=== PATIENT | male | born 1990 | race Two or more races ===

== ENCOUNTER 2024-04-16 14:01 | Emergency (ER) | payer OTHER ==
[~2024-04-16] VITALS: Ht 188 cm; Wt 183.3 kg
--- NOTE | 2024-04-16 14:36 | ED.PDOC ---
SOB-HPI HPI Comments 34 year old male presents to the ED with chief complaint of SOB and calf pain. Patient reports that he has been experiencing SOB with associated pain to his left calf since earlier today. Patient relays that he has history of a PE that he developed after lyly COVID-19 about 2 years ago, so he came in today worried he may have a blood clot. Patient denies any numbness, weakness, chest pain, dizziness, headache, or cough. Chief Complaint: Shortness of Breath Time Seen by MD: 14:32 Primary Care Provider: kerry Reviewed notes: Nurses Notes, Medications, Allergies Information Source: Patient Mode of Arrival: Ambulatory Severity: Moderate Timing: Hours Duration: Since onset Context: At Rest PE Risk Factors: None History of: DVT/PE Prehospital treatment: None Modifying Factors: Nothing Associated Signs and Symptoms: Calf Pain Past Medical History PAST MEDICAL HISTORY: Denies Surgical History: Denies all surgeries Family History Family History: Reviewed,noncontributory to illness Social History Smoker: Non-Smoker Alcohol: Denies ETOH Use Drugs: Denies Drug Use Lives In: Home Constitutional: denies: chills, diaphoresis, fatigue, fever, malaise, sweats, weakness, others EENTM: denies: blurred vision, double vision, ear bleeding, ear discharge, ear drainage, ear pain, ear ringing, eye pain, eye redness, hearing loss, mouth pain, mouth swelling, nasal discharge, nose bleeding, nose congestion, nose pain, photophobia, tearing, throat pain, throat swelling, voice changes, others Respiratory: reports: shortness of breath; denies: cough, hemoptysis, orthopnea, SOB at rest, SOB with excertion, stridor, wheezing, others Cardiovascular: denies: chest pain, dizzy spells, diaphoresis, Dyspnea on exertion, edema, irregular heart beat, left arm pain, lightheadedness, palpitations, PND, syncope, others Gastrointestinal: denies: abdomen distended, abdominal pain, blood streaked bowels, constipated, diarrhea, dysphagia, difficulty swallowing, hematemesis, melena, nausea, poor appetite, poor fluid intake, rectal bleeding, rectal pain, vomiting, others Genitourinary: denies: burning, dysuria, flank pain, frequency, hematuria, incontinence, penile discharge, penile sore, pain, testicle pain, testicle swelling, urgency, others Neurological: denies: dizziness, fainting, headache, left sided numbness, left sided weakness, numbness, paresthesia, pre-existing deficit, right sided numbness, right sided weakness, seizure, speech problems, tingling, tremors, weakness, others Musculoskeletal: reports: others (Left calf pain); denies: back pain, gout, joint pain, joint swelling, muscle pain, muscle stiffness, neck pain Integumetry: denies: bruises, change in color, change in hair/nails, dryness, laceration, lesions, lumps, rash, wounds, others Allergic/Immunocompromised: denies: Difficulty Healing, Frequent Infections, Hives, Itching, others Hematologic/Lymphatic: denies: anemia, blood clots, easy bleeding, easy bruising, swollen glands, others Endocrine: denies: excessive hunger, excessive sweating, excessive thirst, excessive urination, flushing, intolerance to cold, intolerance to heat, unexplained weight gain, unexplained weight loss, others Psychiatric: denies: anxiety, bipolar disorder, depression, hopeless, panic disorder, schizophrenia, sleepless, suicidal, others All Other Systems: Reviewed and Negative Physical Exam General Appearance: Moderate Distress, Other (Increased BMI) HEENT: Normal ENT Inspection, PERRL/EOMI Neck: Full Range of Motion, Non-Tender, Normal, Normal Inspection Respiratory: Chest Non-Tender, No Accessory Muscle Use, No Respiratory Distre ss, Other (Coarse breath sounds) Cardiovascular: No Edema, No JVD, No Murmur, No Gallop, Normal Peripheral Pulses, Regular Rate/Rhythm Breast Exam: Deferred Gastrointestinal: No Organomegaly, Non Tender, No Pulsatile Mass, Normal Bowel Sounds, Soft Genitalia: Deferred Pelvic: Deferred Rectal: Deferred Extremities: No calf tenderness, Normal capillary refill, Normal inspection, Normal range of motion, Non-tender, No pedal edema Musculoskeletal : Apperance: Normal Neurologic: Alert, angle shearer II-XII nml as Tested, No Motor Deficits, Normal Affect, Normal Mood, No Sensory Deficits Cerebellar Function: Normal Reflexes: Normal Skin: Dry, Normal Color, Warm Peripheral Pulses: 3+ Radial (R), 3+ Radial (L) Lymphatic: No Adenopathy Was a procedure done? Was a procedure done?: No Differential Dx Differential Diagnosis: Anxiety, Asthma, Bronchitis, CHF, COPD X-Ray, Labs, Meds, VS Vital Signs Date Time Temp Pulse Resp B/P (MAP) Pulse Ox O2 Delivery O2 Flow Rate FiO2 04/16/24 14:17 98.8 89 22 157/96 (116) 97 Lab Test 04/16/24 15:29 Range/Units White Blood Count 7.8 4.4-10.8 10^3/uL Red Blood Count 6.06 H 4.5-5.90 10^6/uL Hemoglobin 17.8 H 13.5-17.5 g/dL Hematocrit 52.7 41.0-53.0 % Mean Corpuscular Volume 86.9 80.0-100.0 fL Mean Corpuscular Hemoglobin 29.4 28.0-32.0 pg Mean Corpuscular Hemoglobin Concent 33.8 32.0-36.0 g/dL Red Cell Distribution Width 13.2 11.8-14.3 % Platelet Count 244 140-450 10^3/uL Mean Platelet Volume 7.9 6.9-10.8 fL Neutrophils (%) (Auto) 57.7 37.0-80.0 % Lymphocytes (%) (Auto) 31.0 10.0-50.0 % Monocytes (%) (Auto) 7.3 0.0-12.0 % Eosinophils (%) (Auto) 3.5 0.0-7.0 % Basophils (%) (Auto) 0.5 0.0-2.0 % Neutrophils # (Auto) 4.5 1.6-8.6 10 ^3/uL Lymphocytes # (Auto) 2.4 0.4-5.4 10 ^3/uL Monocytes # (Auto) 0.6 0-1.3 10 ^3/uL Eosinophils # (Auto) 0.3 0-0.8 10 ^3/uL Basophils # (Auto) 0 0-0.2 10 ^3/uL Nucleated Red Blood Cells 0.1 % D-Dimer, Quantitative 1.43 H 0.0-0.49 mg/L FEU Sodium Level 137 136-145 mmol/L Potassium Level 4.0 3.5-5.1 mmol/L Chloride Level 103 98-107 mmol/L Carbon Dioxide Level 24 20-31 mmol/L Anion Gap 10 5-15 Blood Urea Nitrogen 10 9-23 mg/dL Creatinine 1.14 0.700-1.30 mg/dL Glomerular Filtration Rate Calc 87 >90 mL/min BUN/Creatinine Ratio 8.8 L 10.0-20.0 Serum Glucose 319 H 74-106 mg/dL Calcium Level 10.3 8.7-10.4 mg/dL Bilat DVT US: FINDINGS: The right and left common femoral, superficial femoral, popliteal, posterior tibial veins and trifurcation appear patent with normal augmentation, phasicity, compressibility and color-flow. IMPRESSION: 1. There is no sonographic evidence for DVT in the lower extremities. Patient alert. Complaining of shortness a breath. DVT study within normal limits. Vitals stable. Answering all questions. He has stopped taking his blood pressure medication. Blood sugar elevated. Blood pressure elevated. WBC within normal limits. D-dimer elevated. Was given Lovenox. Continues to have shortness a breath. Echocardiogram. Explained to the patient. Continue cardiac monitoring. Time of 1ST Reevaluation: 15:32 Reevaluation 1ST: Improved Patient Education/Counseling: Diagnosis, Treatment Family Education/Counseling: Diagnosis, Treatment Additional Information I reviewed the following notes from patient's past medical encounters: None The following tests were ordered, and results were reviewed by me: CBC, BMP, D- Dimer, Bilat DVT US Additional Information was gathered from interviewing the following independent historians: Spouse I reviewed and agreed with the following test results read by other providers: Bilat DVT US I discussed treatment and results with medical personnel and spouse. Departure 1 Departure Time of Disposition: 17:16 Impression: Primary Impression: Uncontrolled diabetes mellitus Qualified Codes: E13.65 - Other specified diabetes mellitus with hyperglycemia Additional Impressions: Hypertensive urgency Shortness of breath Increased BMI Elevated d-dimer Disposition: ADMITTED INPATIENT Admit to: Med Surg Condition: Guarded Critical Care Note Critical Care Time?: Yes (45 min-critical care time only) Stability Stability form required: No Heart Score Heart Score: Heart Score Response (Comments) Value History N/A 0 EKG N/A 0 Age N/A 0 Risk Factors N/A 0 Troponin N/A 0 Total 0 I personally scribed for ALLI IRVIN MD ([email or web address]) on 04/16/24 at 14:36. Electronically submitted by Bill Lou ([email or web address]). I personally scribed for ALLI IRVIN MD ([email or web address]) on 04/16/24 at 15:32. Electronically submitted by Bill Lou ([email or web address]). ALLI IRVIN MD Apr 16, 2024 14:36
--- NOTE | 2024-04-16 15:28 | DVH ---
BILATERAL LOWER EXTREMITY VENOUS DOPPLER CLINICAL HISTORY: dvt Technique: Duplex Doppler evaluation of the deep venous systems of both lower extremities from the co mmon femoral veins to the popliteal veins including color Doppler and spectral/pulsed waveform analys is was performed. COMPARISON: None FINDINGS: The right and left common femoral, superficial femoral, popliteal, posterior tibial veins and trifur cation appear patent with normal augmentation, phasicity, compressibility and color-flow. IMPRESSION: 1. There is no sonographic evidence for DVT in the lower extremities. HS:Y
[2024-04-16 16:04] LABS: Basophils # (auto) 0 10 ^3/uL (0-0.2); Basophils % (auto) 0.5 % (0.0-2.0); Eosinophils # (auto) 0.3 10 ^3/uL (0-0.8); Eosinophils % (auto) 3.5 % (0.0-7.0); Hematocrit 52.7 % (41.0-53.0); Hemoglobin 17.8 g/dL (13.5-17.5); Lymphocytes # (auto) 2.4 10 ^3/uL (0.4-5.4); Mean Corpuscular Hemoglobin 29.4 pg (28.0-32.0); Mean Corpuscular Hgb Conc. 33.8 g/dL (32.0-36.0); Mean Corpuscular Volume 86.9 fL (80.0-100.0); Monocytes # (auto) 0.6 10 ^3/uL (0-1.3); Monocytes % (auto) 7.3 % (0.0-12.0); Neutrophils # (auto) 4.5 10 ^3/uL (1.6-8.6); Neutrophils % (auto) 57.7 % (37.0-80.0); Nucleated Red Blood Cells % 0.1 %; Platelet Count (auto) 244 10^3/uL (140-450); Red Blood Cells 6.06 10^6/uL (4.5-5.90); Red Cell Distribution Width 13.2 % (11.8-14.3); White Blood Cell 7.8 10^3/uL (4.4-10.8)
[2024-04-16 16:13] LABS: Anion Gap 10 (5-15); Carbon Dioxide 24 mmol/L (20-31); Chloride 103 mmol/L (98-107); Sodium 137 mmol/L (136-145)
[2024-04-16 16:14] LABS: Calcium 10.3 mg/dL (8.7-10.4)
[2024-04-16 16:19] LABS: BUN/Creatinine Ratio 8.8 (10.0-20.0); Blood Urea Nitrogen 10 mg/dL (9-23); Glucose 319 mg/dL (74-106)
[2024-04-16 17:57] VITALS: PULSE 86; RESP 16; O2SAT 96
[2024-04-16] MEDS: ENOXAPARIN SOD 150 MG/1 ML SYRINGE SC ONE (18:00)
[2024-04-16] MEDS: IOHEXOL 350 MG/ML 100ML IJ ONE (18:15)
--- NOTE | 2024-04-16 18:52 | DVH ---
CLINICAL HISTORY: pe TECHNIQUE: CT angiogram of the chest was performed with intravenous contrast. 3D MIP reconstructed i mages were created and archived on the PACS system. This exam was performed according to our [facility] dose optimization program. Up-to-date CT equipment and radiation dose reduction techniques are u tilized as appropriate. [Radimetrics Exposure Report] CTDI: [CTDIvol] DLP: 919.54 WID: COMPARISON: None FINDINGS: Lower Neck: Unremarkable Axilla, Mediastinum and Jumana: Normal-sized heart without pericardial effusion. The thoracic aorta is patent and normal caliber. There is no central, segmental, or definite subsegmental pulmonary artery filling defect. Limited evaluation of subsegmental pulmonary arteries due to respiratory motion. Heart and Great Vessels: Unremarkable. Airway, Lungs and Pleura: Trachea and central airways are patent. No airspace consolidation, pleural effusion, or pneumothorax. Chest Wall and Osseous Structures: No destructive osseous lesion. Thoracic spondylosis. Upper abdomen: Diffuse moderate hepatic steatosis. IMPRESSION: 1. Limited evaluation of subsegmental pulmonary arteries due to respiratory motion. No central or def inite segmental pulmonary embolism. 2. No pneumonia or acute abnormality in the chest. 3. Moderate diffuse hepatic steatosis.
[2024-04-16] MEDS ORDERED: LOSA-533 PO (20:30)
[2024-04-16 20:33] VITALS: BP 164/101; PULSE 87; RESP 18; TEMP 99.1; O2SAT 98
[2024-04-16] MEDS ORDERED: LOSARTAN POTASSIUM 25 MG TAB PO ONE (20:45)
[2024-04-16] MEDS ORDERED: DEXTROSE (50%) 50ML SYRG IV PRN (21:15)
--- NOTE | 2024-04-16 22:12 | DVHHPRES ---
History of Present Illness Resident Creating Document: PASCALE JOHNSON RESIDENT History of Present Illness Patient is a 34-year-old male with past medical history of hypertension, prediabetes, DVT, pulmonary embolism, who came in due to left calf pain and shortness of breaths. According to the patient, this morning on 04/16/2024 he woke up experiencing left calf pain which was abrupt in onset, 2/10 in intensity without any exacerbating or relieving factors. Patient also notes having shortness of breaths. The patient notes he had similar symptoms in 2020 when he was being treated for COVID and was found to have DVT and pulmonary embolism. This morning, experiencing similar symptoms of calf pain along with difficulty breathing is what prompted this visit to the hospital. Patient moved to [place] 5 months ago, prior to that was living in [place]. On review of systems patient is complaining of fatigue, shortness of breath, palpitations and nausea. Past Medical History Hypertension, prediabetes, pulmonary embolism, DVT Past Surgical History Left foot plantar fasciitis surgery Smoke: No ALCOHOL: rare Drugs: None Lives: with Family Review of Systems Constitutional: Yes: Malaise; No: Fever, Chills, Sweats, Weakness, Other Eyes: No: Pain, Vision change, Conjunctivae inflammation, Eyelid inflammation, Other, Redness ENT: No: Ear pain, Ear discharge, Nose pain, Nose discharge, Nose congestion, Mouth pain, Mouth swelling, Throat pain, Throat swelling, Other Respiratory: Shortness of breath; No: Cough, Dry, SOB with excertion, Wheezing, Hemoptysis, Pleuritic Pain, Sputum, Wheezing, Other Cardiovascular: Palpitations; No: Chest Pain, Orthopnea, Paroxysmal Noc. Dyspnea, Edema, Lt Headedness, Other Gastrointestinal: Nausea; No: Vomiting, Abdominal Pain, Diarrhea, Constipation, Melena, Hematochezia, Other Genitourinary: No Dysuria, No Frequency, No Incontinence, No Hematuria, No Retention, No Other Musculoskeletal: No: other, neck pain, shoulder pain, arm pain, back pain, hand pain, leg pain, foot pain Skin: No: Rash, Lesions, Jaundice, Bruising, Other Neurological: No: Weakness, Numbness, Incoordination, Change in speech, Confusion, Seizures, Other Allergies: Coded Allergies: NO KNOWN ALLERGIES (Unverified , 04/16/24) Exam Vital Signs Vital Signs Date Time Temp Pulse Resp B/P (MAP) Pulse Ox O2 Delivery O2 Flow Rate FiO2 04/16/24 20:33 99.1 87 18 164/101 (122) 98 99.1 04/16/24 17:57 Room Air* 0 21 General Appearance: Alert, Oriented X3, Cooperative, No acute distress HEENT: Atraumatic, PERRLA, EOMI, Mucous membr. moist/pink Respiratory: Clear to auscultation, Normal air movement Cardiovascular: Regular rate, Normal S1, Normal S2, No murmurs Abdominal: Normal bowel sounds, Soft, No tenderness Extremities: Other (Trace lower extremity edema) Skin: No rashes, No breakdown, No significant lesion Neuro: Normal gait, Normal speech, Strength at 5/5 X4 ext, Normal tone, Sensation intact Psych/Mental Status: Mental status NL, Mood NL Labs/Xrays Labs Test 04/16/24 15:29 Range/Units White Blood Count 7.8 4.4-10.8 10^3/uL Red Blood Count 6.06 H 4.5-5.90 10^6/uL Hemoglobin 17.8 H 13.5-17.5 g/dL Hematocrit 52.7 41.0-53.0 % Mean Corpuscular Volume 86.9 80.0-100.0 fL Mean Corpuscular Hemoglobin 29.4 28.0-32.0 pg Mean Corpuscular Hemoglobin Concent 33.8 32.0-36.0 g/dL Red Cell Distribution Width 13.2 11.8-14.3 % Platelet Count 244 140-450 10^3/uL Mean Platelet Volume 7.9 6.9-10.8 fL Neutrophils (%) (Auto) 57.7 37.0-80.0 % Lymphocytes (%) (Auto) 31.0 10.0-50.0 % Monocytes (%) (Auto) 7.3 0.0-12.0 % Eosinophils (%) (Auto) 3.5 0.0-7.0 % Basophils (%) (Auto) 0.5 0.0-2.0 % Neutrophils # (Auto) 4.5 1.6-8.6 10 ^3/uL Lymphocytes # (Auto) 2.4 0.4-5.4 10 ^3/uL Monocytes # (Auto) 0.6 0-1.3 10 ^3/uL Eosinophils # (Auto) 0.3 0-0.8 10 ^3/uL Basophils # (Auto) 0 0-0.2 10 ^3/uL Nucleated Red Blood Cells 0.1 % D-Dimer, Quantitative 1.43 H 0.0-0.49 mg/L FEU Sodium Level 137 136-145 mmol/L Potassium Level 4.0 3.5-5.1 mmol/L Chloride Level 103 98-107 mmol/L Carbon Dioxide Level 24 20-31 mmol/L Anion Gap 10 5-15 Blood Urea Nitrogen 10 9-23 mg/dL Creatinine 1.14 0.700-1.30 mg/dL Glomerular Filtration Rate Calc 87 >90 mL/min BUN/Creatinine Ratio 8.8 L 10.0-20.0 Serum Glucose 319 H 74-106 mg/dL Calcium Level 10.3 8.7-10.4 mg/dL Assessment/Plan Assessment/Plan Ruled out pulmonary embolism - extremity venous study: There is no sonographic evidence of DVT in the lower extremities - CT pulmonary angiography: Limited evaluation of subsegmental pulmonary arteries due to respiratory motion. No central or definite segmental pulmonary embolism. No pneumonia or acute abnormality in the chest. Moderate diffuse hepatic steatosis. - ordered COVID and influenza testing Hypertensive urgency Rule out secondary causes of hypertension - ordered UA, UDS - losartan 25 mg p.o. daily Type 2 diabetes, uncontrolled Hb A1c 11.3 Hypertension - placed on moderate sliding scale insulin - consistent carb diet History of hypercoagulable state with DVT and pulmonary embolism in 2020 Erythrocytosis with hemoglobin 17.8 - monitor Goals of care: Full code, discussed for >16 minutes on 04/16/2024 Plan discussed with patient Plan discussed with Dr. Sanchez Plan discussed with: Patient, Other (RN) My Orders Orders - PASCALE JOHNSON RESIDENT Procedure Category Date Status Time Admit ADMIT 04/16/24 Transmitted 21:13 Hemoglobin A1c LAB 04/16/24 In Process 21:13 Urinalysis LAB 04/16/24 Logged 21:13 Drug Screen LAB 04/16/24 Logged 21:13 Thyroid Stimulating LAB 04/16/24 In Process Hormone 21:13 Folate (Folic Acid) LAB 04/16/24 In Process 21:13 Rapid Influenza A&B LAB 04/16/24 Logged 21:13 Covid19 Antigen Zoe LAB 04/16/24 Logged Date of Service: Apr 16, 2024 Billing Provider: MYESHA SANCHEZ MD Common Visit Codes: [id number] INP/OBS CARE (HIGH) PASCALE JOHNSON RESIDENT Apr 16, 2024 22:12 MYESHA SANCHEZ MD Apr 16, 2024 22:52
[2024-04-17] MEDS ORDERED: ACCU-CHEK COMFORT CURVE STRIP VI SCH
[2024-04-17] MEDS ORDERED: InsuLIN REG 1unit/0.01ml Soln (100units/ml) SC SCH
--- NOTE | 2024-04-17 06:16 | DVHDSRES ---
Discharge Summary Date of Admission Resident Creating Document: PASCALE JOHNSON RESIDENT Date of Discharge: Apr 17, 2024 Admitting Diagnosis SOB Labs/Diagnostic Data: Laboratory Results Test 04/16/24 15:29 White Blood Count 7.8 10^3/uL (4.4-10.8) Red Blood Count 6.06 10^6/uL (4.5-5.90) Hemoglobin 17.8 g/dL (13.5-17.5) Hematocrit 52.7 % (41.0-53.0) Mean Corpuscular Volume 86.9 fL (80.0-100.0) Mean Corpuscular Hemoglobin 29.4 pg (28.0-32.0) Mean Corpuscular Hemoglobin Concent 33.8 g/dL (32.0-36.0) Red Cell Distribution Width 13.2 % (11.8-14.3) Platelet Count 244 10^3/uL (140-450) Mean Platelet Volume 7.9 fL (6.9-10.8) Neutrophils (%) (Auto) 57.7 % (37.0-80.0) Lymphocytes (%) (Auto) 31.0 % (10.0-50.0) Monocytes (%) (Auto) 7.3 % (0.0-12.0) Eosinophils (%) (Auto) 3.5 % (0.0-7.0) Basophils (%) (Auto) 0.5 % (0.0-2.0) Neutrophils # (Auto) 4.5 10 ^3/uL (1.6-8.6) Lymphocytes # (Auto) 2.4 10 ^3/uL (0.4-5.4) Monocytes # (Auto) 0.6 10 ^3/uL (0-1.3) Eosinophils # (Auto) 0.3 10 ^3/uL (0-0.8) Basophils # (Auto) 0 10 ^3/uL (0-0.2) Nucleated Red Blood Cells 0.1 % D-Dimer, Quantitative 1.43 mg/L FEU (0.0-0.49) Sodium Level 137 mmol/L (136-145) Potassium Level 4.0 mmol/L (3.5-5.1) Chloride Level 103 mmol/L (98-107) Carbon Dioxide Level 24 mmol/L (20-31) Anion Gap 10 (5-15) Blood Urea Nitrogen 10 mg/dL (9-23) Creatinine 1.14 mg/dL (0.700-1.30) Glomerular Filtration Rate Calc 87 mL/min (>90) BUN/Creatinine Ratio 8.8 (10.0-20.0) Serum Glucose 319 mg/dL (74-106) Hemoglobin A1c 11.3 % A1C (<5.7) Calcium Level 10.3 mg/dL (8.7-10.4) Folic Acid 16.72 ng/mL (>5.38) Thyroid Stimulating Hormone (TSH) 1.94 uIU/mL (0.55-4.78) Other Laboratory Tests 04/16/24 15:29 Brief Hx & Hospital Course: Patient is a 34-year-old male with past medical history of hypertension, prediabetes, DVT, pulmonary embolism, who came in due to left calf pain and shortness of breaths. According to the patient, this morning on 04/16/2024 he woke up experiencing left calf pain which was abrupt in onset, 2/10 in intensity without any exacerbating or relieving factors. Patient also notes having shortness of breaths. The patient notes he had similar symptoms in 2020 when he was being treated for COVID and was found to have DVT and pulmonary embolism. This morning, experiencing similar symptoms of calf pain along with difficulty breathing is what prompted this visit to the hospital. Patient moved to [place] 5 months ago, prior to that was living in [place]. On review of systems patient is complaining of fatigue, shortness of breath, palpitations and nausea. extremity venous usg showed There is no sonographic evidence for DVT in the lower extremities. CT PA showed Limited evaluation of subsegmental pulmonary arteries due to respiratory motion. No central or definite segmental pulmonary embolism. No pneumonia or acute abnormality in the chest. Moderate diffuse hepatic steatosis. Pt was started on losartan and moderate SS insulin, however, pt left against medical advice before further evaluation and management could be completed Condition at Discharge: Undetermined Final Diagnosis/Problems List Ruled out pulmonary embolism Hypertensive urgency Rule out secondary causes of hypertension Type 2 diabetes, uncontrolled Hb A1c 11.3 Hypertension History of hypercoagulable state with DVT and pulmonary embolism in 2020 Erythrocytosis with hemoglobin 17.8 Discharge Disposition: AMA Discharge Statement: "Patient was advised to return to the ER or call 911 if any headaches, dizziness, shortness of breath, chest pain, abdominal pain, bleeding, fevers, or worsening of medical condition. Patient was counseled about treatment plan, medications, possible side effects, patientverbalized understanding. All questions were answered to the best of my ability. This discharge took greater then 30 minutes in planning, reviewing documentation, counseling the patient, and discussing with other team members." ASSESSMENT ASSESSMENT Assessment Date of Service: Apr 17, 2024 Billing Provider: MYESHA DE SANTIAGO MD Common Visit Codes: 73863-RYO/OBS DISCH DAY <30MIN PASCALE JOHNSON RESIDENT Apr 17, 2024 06:16 MYESHA DE SANTIAGO MD Apr 17, 2024 08:28
[2024-04-17] MEDS ORDERED: LOSARTAN POTASSIUM 25 MG TAB PO SCH (10:00)
== END 2024-04-16 21:52 | disposition left against medical advice (07) ==
LOC: ER 14:01
DX: E11.65 Type 2 diabetes mellitus with hyperglycemia (principal); E11.9 Type 2 diabetes mellitus without complications; I16.0 Hypertensive urgency; R06.02 Shortness of breath; R79.89 Other specified abnormal findings of blood chemistry
CPT/HCPCS: 36415; 71275; 80048; 82746; 83036; 84443; 85025; 85379; 93970; 96372; 99285; J1650; Q9967